=== PATIENT | female | born 1965 ===

== ENCOUNTER 2025-06-10 11:30 | Inpatient (IN) | payer OTHER ==
[~2025-06-10] VITALS: Ht 162.6 cm; Wt 70.3 kg
[2025-06-11] MEDS ORDERED: TOPROL XL100 M1 PO (10:00)
[2025-06-11] MEDS ORDERED: HYDRALAZINE HCL25 MG PO (10:00)
[2025-06-11] MEDS ORDERED: AMLODIPINE-OLM1 EAC3 PO (10:00)
[2025-06-11] MEDS ORDERED: ECOTRIN81 MG PO (10:01)
[2025-06-11] MEDS ORDERED: SENSIPAR30 MG PO (10:01)
[2025-06-11] MEDS ORDERED: COZAAR25 MG PO (10:01)
[2025-06-11] MEDS ORDERED: SYNTHROID200 MCG PO (10:02)
[2025-06-11] MEDS ORDERED: LEVOTHYROXINE25 MCG PO (10:02)
[2025-06-11 10:07] VITALS: BP 129/82
[2025-06-13] MEDS ORDERED: ONDANSETRON HCL 2 MG/ML VIAL IV PRN (09:15)
[2025-06-13] MEDS ORDERED: ENALAPRILAT DIHYDRATE 1.25 MG/ML VIAL IV PRN (09:15)
[2025-06-13] MEDS ORDERED: DEXAMETHASONE SODIUM PHOSPHATE 4 MG/ML VIAL IV ONE (11:15)
[2025-06-13] MEDS ORDERED: MORPHINE SULFATE 4 MG/ML VIAL IV ONE (14:10)
[2025-06-13 14:30] VITALS: BP 119/62; O2SAT 95
[2025-06-13 16:53] VITALS: BP 125/72; O2SAT 100
[2025-06-13] MEDS ORDERED: LIDOCAINE HCL 30 ML,MAG HYDROX/ALUMINUM HYD/SIMETH 30 ML,DIPHENHYDRAMINE HCL 75 MG MM SCH (17:00)
[2025-06-13] MEDS ORDERED: CYCLOBENZAPRINE HCL 5 MG TABLET PO SCH (17:00)
[2025-06-13] MEDS ORDERED: TRAMADOL HCL 50 MG TABLET PO SCH (17:00)
[2025-06-13] MEDS ORDERED: ACETAMINOPHEN 500 MG GEL..CAP PO SCH (17:00)
[2025-06-13] MEDS ORDERED: PANTOPRAZOLE SODIUM 40 MG/VIAL VIAL IV PUSH SCH (21:00)
[2025-06-14] MEDS ORDERED: LEVOTHYROXINE SODIUM 25 MCG TABLET PO SCH (06:00)
[2025-06-14 08:00] VITALS: BP 136/71; O2SAT 95
[2025-06-14] MEDS ORDERED: AMLODIPINE BESYLATE 10 MG TABLET PO SCH (09:00)
[2025-06-14] MEDS ORDERED: LOSARTAN POTASSIUM 50 MG TABLET PO SCH (09:00)
[2025-06-14] MEDS ORDERED: METOPROLOL SUCCINATE 100 MG TAB.SR.24H PO SCH (09:00)
== END 2025-06-14 15:31 | disposition home or self-care (01) | DRG 627 ==
LOC: SURG 06-13 07:05 → O/R 06-13 07:05 → SURG 06-13 09:00
PROVIDERS: ADMIT Surgery; ATTEND Surgery
PROC: 0GBL0ZZ Excision of Right Superior Parathyroid Gland, Open Approach (ICD-10-PCS; principal; 2025-06-13 09:45)
DX: D35.1 Benign neoplasm of parathyroid gland (principal); E21.0 Primary hyperparathyroidism